=== PATIENT | female | born 1990 | race Caucasian/White ===

== ENCOUNTER → 2022-05-13 | Outpatient (CLI) | payer OTHER ==
--- NOTE | 2022-05-13 11:16 | CA ---
Transthoracic Echo Report Name: Robyn Hernandez Age: 32 Gender: F : 1990 Exam Date: 05/13/2022 08:50 Exam Location: [facility] Ht (in): 66 Wt (lb): 160 Ordering Physician: New Gil DO ([email or web address]) Attending/Referring Phys: Brendan Swenson [facility] Check Out Clerk Alana Giles RDCS Procedure CPT: Indications: R06.02 SHORTNESS OF BREATH Cardiac Hx: Fm hx of heart disease. Technical Quality: Good Contrast 1: Total Dose (mL): Contrast 2: Total Dose (mL): MEASUREMENTS (Male / Female) Normal Values 2D ECHO LV Diastolic Diameter PLAX 4.9 cm 4.2 - 5.9 / 3.9 - 5.3 cm LV Systolic Diameter PLAX 3.3 cm IVS Diastolic Thickness 0.8 cm 0.6 - 1.0 / 0.6 - 0.9 cm LVPW Diastolic Thickness 1.0 cm 0.6 - 1.0 / 0.6 - 0.9 cm LV Relative Wall Thickness 0.4 RV Internal Dim ED PLAX 2.2 cm LA Volume 51.8 cm??? 18 - 58 / 22 - 52 cm??? M-MODE Aortic Root Diameter MM 2.8 cm LA Systolic Diameter MM 2.8 cm LA Ao Ratio MM 1.0 MV E Point Septal Separation 0.9 cm AV Cusp Separation MM 2.0 cm DOPPLER AV Peak Velocity 161.4 cm/s AV Peak Gradient 10.4 mmHg MV Area PHT 3.4 cm??? Mitral E Point Velocity 85.3 cm/s Mitral A Point Velocity 74.5 cm/s Mitral E to A Ratio 1.1 MV Deceleration Time 224.2 ms MV E' Velocity 10.0 cm/s Mitral E to MV E' Ratio 8.5 TR Peak Velocity 172.5 cm/s TR Peak Gradient 11.9 mmHg Right Ventricular Systolic Press 15.9 mmHg FINDINGS Left Ventricle Normal Left ventricular size, wall thickness, systolic function with no obvious regional wall motion abnormalities. Normal Left ventricular diastolic filling pattern. Left ventricular ejection fraction is estimated at 55-60 %. Right Ventricle The right ventricle is normal in size and function. Right Atrium The right atrium is normal in size. Left Atrium Mildly increased left atrial area. Mitral Valve Structurally normal mitral valve without significant stenosis or prolapse. There is a trace of mitral regurgitation. Aortic Valve Structurally normal aortic valve without significant sclerosis or stenosis. There is no aortic regurgitation. Tricuspid Valve Structurally normal tricuspid valve without significant stenosis. Pulmonary artery systolic pressure is normal. Trace tricuspid regurgitation. Pulmonic Valve Structurally normal pulmonic valve without significant stenosis. There is no pulmonic regurgitation. Pericardium Normal pericardium without effusion. Aorta Normal aortic root dimension. CONCLUSIONS Normal LV size and systolic function Normal RV size and systolic function Previewed by: Dr. Barry Riley MD (Electronically Signed) Final Date: 13 May 2022 11:15
== END | disposition home or self-care (01) ==
LOC: RADECHMAIN 08:45
PROVIDERS: ATTEND Internal Medicine
DX: I08.1 Rheumatic disorders of both mitral and tricuspid valves (principal)
CPT/HCPCS: 93306